=== PATIENT | female | born 1935 | race Caucasian/White ===

== ENCOUNTER → 2022-02-03 | Outpatient (CLI) | payer MEDICARE ==
[~2022-02-03] MED LIST: ASPIRIN 32325 MG/TAB PO; CLARITIN 1010 MG/TAB PO; COREG 3.123.125 MG/T PO; COREG12.5 MG PO; FOLIC ACID 11 MG/TA1 PO; GENTLE LAXATIVE10 MG RC; GLUCOPHAGE500 MG/TAB PO; GLUCOTROL XL2.5 MG PO; IMODIUM 2MG CAPS2 MG PO; IRON65 M1 PO; K-TAB20 PO; LASIX 20MG TABL20 MG PO; MILK OF MA400 MG/5 M PO; MIRALAX PA17 GM/Dose PO; MYLANTA 150 ML150 M1 PO; NORCO 325 MG-51 TAB PO; NYSTATIN POWDER30 GM TOP; PLAVIX 75MG TAB75 MG PO; PRAVACHOL 40MG40 MG PO; PRILOSEC 20MG20 MG PO; PRINIVIL20 MG PO; REGLAN 10MG10 MG/TAB PO; THERAGRAN1 TA1 PO; TYLENOL 325MG325 MG PO; TYLENOL SU650 MG/SUP RC; ULTRAM 50MG TAB50 MG PO; VITAMIN C500 MG PO; VITAMIN D 50,1.25 MG PO; ZESTRIL 5MG5 MG PO; ZOFRAN 4MG T4 MG/TAB PO
[2022-02-03 17:56] LABS: ALBUMIN 3.3 gm/dL (3.4-4.8); BILIRUBIN,TOTAL 0.5 mg/dL (0.2-1.2); CALCIUM 8.6 mg/dL (8.4-10.2); CREATININE, serum 1.41 mg/dL (0.57-1.11); POTASSIUM 4.9 mmol/L (3.5-4.5); TOTAL PROTEIN 6.5 gm/dL (6.2-8.1)
[2022-02-03 18:07] LABS: BASO % 0.3 % (0.0-2.0); EOS # 0.1 K/mm3 (0.0-0.7); EOS % 0.9 % (0.0-4.0); GRAN # 6.7 K/mm3 (1.4-6.5); GRAN % 72.2 % (42.2-75.2); HEMATOCRIT 39.1 % (37.0-47.0); HEMOGLOBIN 12.1 g/dl (12.5-16.0); LYMPH # 1.7 K/mm3 (1.2-3.4); LYMPH % 18.7 % (20.0-51.0); MEAN CELL VOLUME 90 fl (80.0-100.0); MEAN CORPUSCULAR HEMOGLOBIN 28 pg (27-31); MEAN CORPUSCULAR HGB CONC 31 g/dl (33.0-37.0); MEAN PLATELET VOLUME 9.8 fl (7.4-10.4); MONO # 0.7 K/mm3 (0.1-0.6); MONO % 7.6 % (1.7-9.3); PLATELET COUNT 304 K/mm3 (130-400); RED BLOOD COUNT 4.35 M/mm3 (4.10-5.30); REDCELL DISTRIBUTION WIDTH-CV 14.3 % (11.5-14.5)
[2022-02-03 18:16] LABS: TSH w REFLEX 1.79 uIU/mL (0.350-4.940)
== END ==
LOC: COL.LAB 16:34
PROVIDERS: Nurse Practitioner Family
DX: I95.9 Hypotension, unspecified (principal)